=== PATIENT | male | born 1945 | race Caucasian/White ===

== ENCOUNTER 2017-12-08 11:35 | Emergency (ER) | payer MEDICARE ==
[2017-12-08 11:54] VITALS: TEMP 97.7; O2SAT 97
--- NOTE | 2017-12-08 12:35 | ED.PDOC ---
History of Present Illness - General Chief Complaint: Back Pain or Injury Stated Complaint: back pain, right shoulder pain Time Seen by Provider: 12/08/17 11:57 Source: patient Exam Limitations: no limitations - History of Present Illness Initial Comments: Gregor Fair 72 y/o male stated that he has history of radicular chronic low back pain in the past but had epidural injection in [place] which relieve his symptoms and the last 4 days had same problem with pain radiation down right leg no bowel or bladder dysfunction,no fever ,no weight loss.Has also right shoulder pain unable to raise right arm for several months.He has history of right kidney CA s/p Right nephrectomy and htn not taking medication and no regular md follow up. Timing/Duration: other - see hpi Quality/Severity: sharpness Back Pain Location: lumbar spine Back Pain Radiation: lower legs - right Method of Injury/Prior Injury: unknown Improving Factors: rest Worsening Factors: movement Associated Symptoms: lower back pain Allergies/Adverse Reactions: Allergies Penicillins Allergy (Verified 09/08/12 06:31) Enoxaparin [From Lovenox] Adverse Reaction (Verified 09/08/12 06:31) Home Medications: Ambulatory Orders Albuterol Inhaler [Ventolin Hfa Inhaler] 1 puff INH QID #1 unt 08/14/15 levoFLOXacin [Levaquin] 500 mg PO QDAC #7 tab 08/14/15 Gabapentin [Neurontin] 300 mg PO BID #30 cap 12/08/17 Tramadol HCl 50 mg PO TID #20 tab 12/08/17 predniSONE 20 mg PO DAILY #7 tab 12/08/17 Review of Systems - Review of Systems Constitutional: States: no symptoms reported EENTM: States: no symptoms reported Respiratory: States: no symptoms reported Cardiology: States: no symptoms reported Gastrointestinal/Abdominal: States: no symptoms reported Genitourinary: States: no symptoms reported Musculoskeletal: States: see HPI Skin: States: no symptoms reported Neurological: States: no symptoms reported Past Medical History (General) - Patient Medical History Hx Seizures: No Hx Stroke: No Hx Asthma: No Hx of COPD: No Hx Cardiac Disorders: No Hx Congestive Heart Failure: No Hx Diabetes: No Hx Cancer: Yes - Kidney 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 Source:: Wound Surgical History: other - right nephrectomy,right knee - Vaccination History Hx Influenza Vaccination: No - Social History Hx Tobacco Use: Yes Hx Physical Abuse: No Hx Emotional Abuse: No Family Medical History - Family History Mother Family History: Unknown Living Status: Unknown Hx Family Cancer: Yes - lung-brother;stomach-mom Physical Exam - Physical Exam General Appearance: Alert, Comfortable, No apparent distress Eyes, Ears, Nose, Throat Exam: normal ENT inspection Neck Exam: non-tender, full range of motion, normal alignment Cardiovascular/Respiratory: regular rate, rhythm, no M/R/G, normal peripheral pulses, no JVD, normal breath sounds Peripheral Pulses: radial,right: 2+, radial,left: 2+ Gastrointestinal/Abdominal: non tender, soft, no organomegaly Back Exam: normal inspection, no CVA tenderness, no vertebral tenderness, decreased range of motion - spasm, muscle spasm Extremity Exam: non-tender, no pedal edema, pain with movement - right shoulder on flexio /abduction Neurologic: no motor/sensory deficits, alert, oriented x 3, other - DTR 2+ bilaterally Skin Exam: normal color, warm/dry Progress - Progress Progress: 12/08/17 12:39 Vital Signs - 24 hr 12/08/17 11:42 Temperature 97.7 F Pulse Rate [ 66 left brachial] Respiratory 18 Rate Blood Pressure 167/104 [left brachial] O2 Sat by Pulse 97 Oximetry - Results/Orders Results/Orders: Laboratory Results - last 24 hr 12/08/17 12/08/17 12/08/17 12:51 12:51 13:27 WBC 10.9 H RBC 5.19 Hgb 15.5 Hct 45.4 MCV 87.6 MCH 29.8 MCHC 34.1 RDW 14.0 Plt Count 313 MPV 7.2 L Absolute Neuts (auto) 8.40 H Absolute Lymphs (auto) 1.50 Absolute Monos (auto) 0.60 Absolute Eos (auto) 0.30 Absolute Basos (auto) 0.10 Neutrophils % 77.4 Lymphocytes % 13.7 L Monocytes % 5.5 Eosinophils % 2.5 Basophils % 0.9 Sodium 137 Potassium 4.1 Chloride 101 Carbon Dioxide 27 Anion Gap 13.1 BUN 17 Creatinine 1.16 BUN/Creatinine Ratio 14.7 Random Glucose 123 H Serum Osmolality 276.7 Calcium 9.2 Urine Color Yellow Urine Appearance Clear Urine pH 5.5 Ur Specific [place] 1.020 Urine Protein 30 Urine Glucose (UA) Negative Urine Ketones Trace Urine Blood Negative Urine Nitrite Negative Urine Bilirubin Negative Urine Urobilinogen 0.2 Ur Leukocyte Esterase Negative Urine RBC 0 Urine WBC 0 Ur Epithelial Cells 1-3 Urine Bacteria 0 - EKG/XRAY/CT XRAY: lumbar spine degenerative disc disease Departure - Departure Clinical Impression: Rotator cuff insufficiency of right shoulder, Lumbar radiculopathy, right, Degeneration of lumbar intervertebral disc Time of Disposition: 14:04 Disposition: Discharge to Home or Self Care Condition: Fair Departure Forms: ED Discharge - Pt. Copy, Patient Portal Self Enrollment Instructions: DI for Back Pain With Sciatica Referrals: Efrain Alex III, MD [Primary Care Provider] - 1-2 Weeks Prescriptions: Gabapentin [Neurontin] 300 mg PO BID #30 cap predniSONE 20 mg PO DAILY #7 tab Tramadol HCl 50 mg PO TID #20 tab Home Medications: Ambulatory Orders Albuterol Inhaler [Ventolin Hfa Inhaler] 1 puff INH QID #1 unt 08/14/15 levoFLOXacin [Levaquin] 500 mg PO QDAC #7 tab 08/14/15 Gabapentin [Neurontin] 300 mg PO BID #30 cap 12/08/17 Tramadol HCl 50 mg PO TID #20 tab 12/08/17 predniSONE 20 mg PO DAILY #7 tab 12/08/17 Additional Instructions: Need to sign up with primary Md for follow up
[2017-12-08] MEDS ORDERED: KETOROLAC TROMETHAMINE INJ 30 MG/ML VIAL IM ONE (12:41)
[2017-12-08] MEDS ORDERED: ORPHENADRINE CITRATE 30 MG/ML AMP IM ONE (12:41)
[2017-12-08] MEDS ORDERED: HYDROcodone 10MG/APAP 325MG 1 EA TAB PO ONE (12:41)
--- NOTE | 2017-12-08 13:07 | RAD ---
Procedure: XR LUMBAR SPINE 2-3 VIEWS Exam Date: 12/08/2017 12:40 PM CDT Ordering Provider: Rosas Stokes Clinical Indication: pain Comparison: None Findings: No fracture, focal osseous destruction, or malalignment. Multilevel moderate disc space narrowing and endplate spurring is seen throughout the lumbar spine. Soft tissues are unremarkable. IMPRESSION: No acute osseous abnormality. Multilevel moderate degenerative disc disease in the lumbar spine. Electronically signed by: Alfredo Ramirez MD 12/08/2017 1:06 PM CDT
[2017-12-08 14:37] VITALS: BP 125/86
== END 2017-12-08 14:28 | disposition home or self-care (01) ==
LOC: ER 11:35
DX: M51.16 Intervertebral disc disorders with radiculopathy, lumbar region (principal); S46.001A Unspecified injury of muscle(s) and tendon(s) of the rotator cuff of right shoulder, initial encounter; Z85.528 Personal history of other malignant neoplasm of kidney; Z90.5 Acquired absence of kidney; Z87.891 Personal history of nicotine dependence; I10 Essential (primary) hypertension
CPT/HCPCS: 36415; 72100; 80048; 81001; 85025; J1885; J2360

== ENCOUNTER → 2019-07-22 | Outpatient (CLI) | payer MEDICARE | LOC: LAB.O 08:35 | PROVIDERS: ATTEND Family Medicine | DX: I10 Essential (primary) hypertension (principal); C64.9 Malignant neoplasm of unspecified kidney, except renal pelvis; R53.83 Other fatigue; D51.0 Vitamin B12 deficiency anemia due to intrinsic factor deficiency; Z13.220 Encounter for screening for lipoid disorders; Z12.5 Encounter for screening for malignant neoplasm of prostate ==

== ENCOUNTER 2019-10-22 | Emergency (ER) | payer MEDICARE, OTHER | END 2019-10-22 15:52 | disposition home or self-care (01) | DX: R10.30 Lower abdominal pain, unspecified (principal); R91.1 Solitary pulmonary nodule; R00.1 Bradycardia, unspecified; M47.817 Spondylosis without myelopathy or radiculopathy, lumbosacral region; K80.20 Calculus of gallbladder without cholecystitis without obstruction; N40.0 Benign prostatic hyperplasia without lower urinary tract symptoms; K57.30 Diverticulosis of large intestine without perforation or abscess without bleeding; Z90.5 Acquired absence of kidney; Z85.528 Personal history of other malignant neoplasm of kidney; Z87.891 Personal history of nicotine dependence ==

== ENCOUNTER → 2019-12-01 | Outpatient (CLI) | payer OTHER ==
--- NOTE | 2019-12-01 10:12 | RAD ---
EXAM DESCRIPTION: Left hip, 2 views CLINICAL HISTORY: Left hip pain FINDINGS/ IMPRESSION: Sclerotic density intertrochanteric left proximal femur. Mildly spiculated margins. No surrounding lucency. Imaging appearance most consistent with bone island Acetabular over coverage of the femoral head with superolateral acetabular osteophyte ridge predisposing to femoroacetabular impingement. Mild joint space narrowing of the weightbearing hip No advanced arthrosis or focal osteochondral lesion. No fracture the proximal femur or pelvis Electronically signed by: Meño Alegre MD 12/01/2019 10:11 AM CDT
== END ==
LOC: YCFC.O 09:08
PROVIDERS: ATTEND Family Medicine
DX: M25.852 Other specified joint disorders, left hip (principal); M25.752 Osteophyte, left hip; M89.8X5 Other specified disorders of bone, thigh; E78.5 Hyperlipidemia, unspecified

== ENCOUNTER → 2019-12-17 | Outpatient (CLI) | payer OTHER ==
--- NOTE | 2019-12-17 09:28 | MRI ---
Study: MRI of the Right Shoulder. Indication: SHOULDER PAIN Technique: Multiplanar, multi sequence MRI of the right shoulder was obtained without intravenous contrast. Comparison: None. Findings: Severe hypertrophic AC joint osteoarthritis. Type I acromion mild lateral downsloping. Supraspinatus and infraspinatus tendinosis and attenuation with subtle low-grade articular tearing throughout the infraspinatus tendon insertion. Both tendons are slightly attenuated and elongated with medial myotendinous retraction by 2 mm. No full-thickness tear. Subscapularis tendinosis with high-grade interstitial tearing superior two thirds tendon insertion. Teres minor tendon intact. Mild atrophy and grade 2 fatty infiltration rotator cuff musculature. Long head biceps tendinosis with partial medial subluxation onto the lesser tuberosity. Circumferential labral maceration/tearing. Severe glenohumeral joint osteoarthritis with complete joint space loss. Patchy areas of cortical remodeling and subchondral cystic change. B2 type glenoid present. Moderate size joint effusion. Moderate inferior humeral osteophyte formation. Impression: Supraspinatus and infraspinatus tendinosis, attenuation, and tendon elongation with subtle low-grade interstitial tearing throughout the infraspinatus tendon insertion Subscapular tendinosis with high-grade interstitial tearing superior two thirds tendon insertion. Mild atrophy and grade 2 fatty infiltration rotator cuff musculature. Long head biceps tendinosis with partial medial subluxation. Circumferential labral maceration/tearing. Severe glenohumeral joint osteoarthritis with a moderate size joint effusion. Severe hypertrophic AC joint osteoarthritis. Electronically signed by: Thiago Bejarano MD 12/17/2019 9:27 AM CDT
== END ==
LOC: MRI 08:20
PROVIDERS: ATTEND Family Medicine
DX: S43.431A Superior glenoid labrum lesion of right shoulder, initial encounter (principal); S46.911A Strain of unspecified muscle, fascia and tendon at shoulder and upper arm level, right arm, initial encounter; M75.91 Shoulder lesion, unspecified, right shoulder; M19.011 Primary osteoarthritis, right shoulder; M25.411 Effusion, right shoulder; M62.511 Muscle wasting and atrophy, not elsewhere classified, right shoulder; M75.21 Bicipital tendinitis, right shoulder

== ENCOUNTER → 2020-01-15 | Outpatient (CLI) | payer OTHER ==
--- NOTE | 2020-01-15 09:30 | RAD ---
EXAM DESCRIPTION: Pelvis CLINICAL HISTORY: 74 years Male, PAIN INLEFT HIP COMPARISON: Left hip radiograph December 01, 2019 FINDINGS: 2 views of the pelvis and left hip were obtained. No acute fracture or malalignment. Again seen is an irregular sclerotic lesion in the intertrochanteric region of the left femur, stable from the prior exam. Bilateral hip joint space narrowing, worse on the right side. Osteophytes arising from the acetabular margins bilaterally. The symphysis and sacroiliac joints are unremarkable. No soft tissue abnormality. IMPRESSION: Degenerative changes in both hips, slightly worse in the right side, with a persistent sclerotic lesion in the intertrochanteric region of the left femur, stable. Differential considerations as described previously but the lesion is ultimately nonspecific. If the patient has persistent left hip pain, MRI could be performed for further evaluation. Electronically signed by: Tio Valente MD 01/15/2020 9:28 AM CDT
--- NOTE | 2020-01-15 09:32 | RAD ---
EXAM DESCRIPTION: Knee,Left Complete CLINICAL HISTORY: 74 years Male, PAIN IN LEFT KNEE COMPARISON: None. FINDINGS: 4 views of the left knee show no acute fracture or malalignment. Moderate medial and lateral joint space narrowing. Small osteophytes in the patellofemoral compartment. Moderate-sized joint effusion. IMPRESSION: Moderate tricompartmental degenerative changes with a left knee joint effusion. Electronically signed by: Tio Valente MD 01/15/2020 9:31 AM CDT
== END ==
LOC: RAD 08:26
PROVIDERS: ATTEND Orthopaedic Surgery
DX: M17.12 Unilateral primary osteoarthritis, left knee (principal); M25.462 Effusion, left knee; M16.0 Bilateral primary osteoarthritis of hip; M89.9 Disorder of bone, unspecified

== ENCOUNTER → 2020-01-27 | Outpatient (CLI) | payer OTHER ==
--- NOTE | 2020-01-27 09:44 | CT ---
EXAM DESCRIPTION: CT abdomen and pelvis without and with contrast CLINICAL HISTORY: Generalized abdominal pain COMPARISON: None Available. TECHNIQUE: Spiral CT with multiplanar reformatted images. Pre and post intravenous iodinated nonionic contrast This exam was performed according to our departmental dose-optimization program, which includes automated exposure control, adjustment of the mA and/or kV according to patient size and/or use of iterative reconstruction technique. FINDINGS: Multiple 5-9 mm gallstones layering dependently in the gallbladder. No evidence of cholecystitis or choledocholithiasis. No biliary ductal obstruction. Normal appearance of the liver, spleen and pancreas. Previous right nephrectomy. No mass or adenopathy in the right renal fossa. 1.6 cm simple cyst lower medial left kidney. Mild nodular hyperplasia of the left adrenal gland. Atherosclerotic aorta and iliac arteries without aneurysm Diverticulosis of the lower descending and sigmoid colon. No diverticulitis. No mass lesion or focal inflammatory process in the stomach, small or large intestine. Normal terminal ileum and appendix No mass lesion or adenopathy in the omentum, mesentery or retroperitoneum Prostate hypertrophy with a couple of small central calcifications. No mass or adenopathy in the pelvis Nonaggressive lesion of the proximal left femur, likely low-grade chondroid lesion. Multilevel degenerative change in the spine with scoliosis. Osteoarthritis of the right hip with degenerative cyst in the abdomen is a tiny amount. No diagnostic acute bony abnormality Calcified granuloma in the right middle lobe. Visualized lung bases are otherwise clear. Normal heart size IMPRESSION: 1.6 cm simple cyst of the left kidney. Previous right nephrectomy Small gallstones layering dependently in the gallbladder without cholecystitis Colonic diverticulosis without diverticulitis Electronically signed by: Meño Alegre MD 01/27/2020 9:43 AM CDT
--- NOTE | 2020-01-28 08:24 | CT ---
Procedure: CT LUNG SCREENING Exam Date: January 27, 2020. Ordering Provider: Carlito Quan Clinical Indication: PERSONAL HISTORY OF NICOTINE DEPENDENCE smoking cessation x20 years. 40 pack years. This patient meets eligibility criteria for low-dose CT lung cancer screening. Comparison: Chest x-ray August 2015. Technique: Using a multislice scanner, sequential helical axial imaging was obtained in the thorax, 2.5 mm thickness, 2.5 mm separation, from the level of the thoracic inlet through the lung bases without IV contrast. A low dose protocol was utilized for BMI greater than 30: BMI: 30.5. CTDI: 2.91 mGy. 120. kVp. 75 mA. DLP 116 mGy-cm. 2D sagittal and coronal reconstructed images, 6.0 mm thickness, were obtained. This exam was performed according to our departmental dose optimization program which includes use of automated exposure control, adjustment of the mA and/or kV according to patient size and/or use of iterative reconstruction technique. Nodule measurements under 10 mm are given as mean value of 3 axes diameters. FINDINGS: Lungs and large airways: Bilateral minimal uniform parenchymal blebs in the upper lung du. Pleural parenchymal scarring associated with a calcified nodule in the base of the right middle lobe. Bibasilar pleural-parenchymal scarring and/or posterior dependent atelectasis. Bilateral perihilar peribronchial wall thickening minimal. No abnormal nodules or mass. No focal infiltrates. Pleura and space: Unremarkable. Mediastinum and boom: evaluation limited by low dose technique and lack of IV contrast. Negative. Heart and great vessels: Atherosclerotic calcifications in the coronary arteries and aortic arch and descending thoracic aorta. Chest wall, lower neck, axillae: Evaluation also limited by same factors as described above. Unremarkable. Upper abdomen: Evaluation limited by low-dose technique. No free air or free fluid in the included peritoneal space. At least 5 [place] dependent gallstones in the included gallbladder. Normal density and size of the adrenal glands and spleen. Osseous structures: Evaluation limited by low dose MIP technique. Significant bilateral foraminal narrowing at T9-10 and T10-11. Endplate spondylosis at these levels and more superior. Sternoclavicular and glenohumeral arthrosis. IMPRESSION: 1. Minimal emphysematous changes upper lung du. Pleural parenchymal scarring and posterior dependent atelectasis. No abnormal nodules and no masses. No acute infiltrate.. [facility] Best Practice Recommendations: please see below for Lung RADS category and FOLLOW-UP.* *Lung RADS category Category 1 - No nodule or definitely benign nodules (probability of malignancy less than 1%). Follow-up: Continue annual screening with Low Dose Chest CT in 12 months. Electronically signed by: Tyson Smart MD 01/28/2020 8:22 AM CDT
== END ==
LOC: YCFC.O 07:00
PROVIDERS: ATTEND Family Medicine
DX: Z87.891 Personal history of nicotine dependence (principal); J98.11 Atelectasis; J98.4 Other disorders of lung; J43.9 Emphysema, unspecified; I10 Essential (primary) hypertension; R10.9 Unspecified abdominal pain; N28.1 Cyst of kidney, acquired; Z90.5 Acquired absence of kidney; K80.20 Calculus of gallbladder without cholecystitis without obstruction; K57.30 Diverticulosis of large intestine without perforation or abscess without bleeding
CPT/HCPCS: 36415; 74178; 80053; 81001; 82150; 83690; 85025; 93005; G0297

== ENCOUNTER → 2020-02-16 | Outpatient (CLI) | payer OTHER ==
--- NOTE | 2020-02-16 14:15 | US ---
EXAM DESCRIPTION: Venous,Lower Extremity LT (accession [id number]), Venous,Lower Extremity RT (accession [id number]): Ultrasound. CLINICAL HISTORY: VENOUS STASIS EDEMA OF BILATERAL LOWER LIMBS COMPARISON: None Available. TECHNIQUE: Two -dimensional and doppler sonographic evaluation of the deep venous system of the bilateral lower extremities. FINDINGS: Doppler evaluation shows normal color flow and normal phasicity and augmentation of the bilateral common femoral veins, junctions with the bilateral proximal saphenous veins, femoral veins, popliteal veins, greater saphenous veins, peroneal and posterior tibial veins. These veins showed normal occlusion with transducer pressure. Two-dimensional survey showed no echogenic clot within these veins. IMPRESSION: Duplex ultrasound evaluation of the bilateral lower extremity deep venous systems showing no evidence of thrombosis. Electronically signed by: Tyson Smart MD 02/16/2020 2:14 PM CDT
--- NOTE | 2020-02-16 14:16 | US ---
EXAM DESCRIPTION: Venous,Lower Extremity LT (accession [id number]), Venous,Lower Extremity RT (accession [id number]): Ultrasound. CLINICAL HISTORY: VENOUS STASIS EDEMA OF BILATERAL LOWER LIMBS COMPARISON: None Available. TECHNIQUE: Two -dimensional and doppler sonographic evaluation of the deep venous system of the bilateral lower extremities. FINDINGS: Doppler evaluation shows normal color flow and normal phasicity and augmentation of the bilateral common femoral veins, junctions with the bilateral proximal saphenous veins, femoral veins, popliteal veins, greater saphenous veins, peroneal and posterior tibial veins. These veins showed normal occlusion with transducer pressure. Two-dimensional survey showed no echogenic clot within these veins. IMPRESSION: Duplex ultrasound evaluation of the bilateral lower extremity deep venous systems showing no evidence of thrombosis. Electronically signed by: Tyson Smart MD 02/16/2020 2:14 PM CDT
--- NOTE | 2020-02-16 14:25 | US ---
EXAM DESCRIPTION: Gall Bladder: ULTRASOUND. CLINICAL HISTORY: UNSPECIFIED ABDOMINAL PAIN COMPARISON: Vascular ultrasound of the lower extremities on this visit. CT scan abdomen and pelvis January 26. TECHNIQUE: Transabdominal scanning: Mckeon-scale and Doppler modes.. Technically difficult study due to patient body habitus. FINDINGS: Gallbladder: Large with septation or cyst. Cavitary dependent stones measuring 4.2, 2.9, and 4.8 mm. No fluid around the gallbladder. No wall thickening. 2.3 mm. Non-tender with transducer pressure. Common bile duct: caliber 4.2 mm within normal limits. Liver: Increased echogenicity; limited visualization of the posterior liver and soft tissues posterior to the liver. Contour liver capsule smooth where seen. No fluid around the liver. Intrahepatic biliary ducts normal caliber. Doppler hepatopedal flow portal vein.. 11 mm caliber at ricardo hepatis. Long axis right lobe 17.5 cm. Pancreas: normal size Normal echogenicity. Duct not seen. Aorta: 1.8 cm proximal caliber normal limits. Right kidney: Surgically absent. No fluid in the renal fossa.. IMPRESSION: 1. Gallbladder slightly enlarged with septation and multiple layering stones. No wall thickening or fluid. Nontender with transducer pressure. Normal caliber common bile duct. 2. Steatosis of the liver with difficult visualization of the posterior liver and posterior soft tissues. Borderline enlargement. Physiologic vascularity and caliber of the ducts. Normal ultrasound of the pancreas. 3. Normal caliber of the proximal abdominal aorta. Right kidney surgically absent with no fluid in the right renal fossa. Electronically signed by: Tyson Smart MD 02/16/2020 2:23 PM CDT
--- NOTE | 2020-02-16 14:26 | US ---
EXAM DESCRIPTION: Extremity,Lower Walker Arteries: Ultrasound. CLINICAL HISTORY: PVD COMPARISON: None. TECHNIQUE: Doppler evaluation of the bilateral lower extremity arterial flow waveforms and velocities. FINDINGS: Arterial waveforms in the right lower extremity are all multiphasic.. Arterial waveforms in the left lower extremity are all multiphasic.. Comments: Unremarkable. IMPRESSION: Doppler ultrasound of the bilateral lower extremity arterial system shows no evidence of significant atherosclerotic occlusive disease.. Electronically signed by: Tyson Smart MD 02/16/2020 2:25 PM CDT
== END ==
LOC: US 11:09
PROVIDERS: ATTEND Family Medicine
DX: K80.20 Calculus of gallbladder without cholecystitis without obstruction (principal); K76.0 Fatty (change of) liver, not elsewhere classified; K82.9 Disease of gallbladder, unspecified; I87.2 Venous insufficiency (chronic) (peripheral); I73.9 Peripheral vascular disease, unspecified; Z90.5 Acquired absence of kidney

== ENCOUNTER → 2020-04-06 | Outpatient (CLI) | payer OTHER | END | disposition home or self-care (01) | LOC: NM 09:00 | PROVIDERS: ATTEND Family Medicine | DX: R94.31 Abnormal electrocardiogram [ECG] [EKG] (principal) ==

== ENCOUNTER 2020-04-18 00:14 | Emergency (ER) | payer OTHER ==
[2020-04-18] MEDS ORDERED: traMADol HCL 50 MG TAB PO ONE (00:41)
[2020-04-18] MEDS ORDERED: diazePAM INJ 10 MG/2 ML SYG IM ONE (00:42)
[2020-04-18 00:49] VITALS: TEMP 97.9
--- NOTE | 2020-04-18 00:49 | ED.PDOC ---
History of Present Illness - General Chief Complaint: Neck Injury/Pain Stated Complaint: neck pain Time Seen by Provider: 04/18/20 00:41 Source: patient, RN notes reviewed, Vital Signs reviewed, family - Exam Limitations: no limitations - History of Present Illness Initial Comments: Patient is a 74-year-old white male who presents with complaints of worsening neck pain over the last few days. Patient was seen about a month ago for a lump on his left shoulder which his PCP thought was a lipoma. Patient noticed worsening neck pain over the last 2 to 3 days. It became significantly worse this evening. The pain is tight and squeezing in nature. It radiates from both shoulders up into his neck and head. Pain is worse with movement of his neck and head. Nothing is improving the pain. Patient attributes this to the lump on his shoulder. Patient denies any trauma. Patient denies any fever or chills. He denies any photophobia. Severity: severe Improving Factors: nothing Worsening Factors: movement Associated Symptoms: denies symptoms Allergies/Adverse Reactions: Allergies Penicillins Allergy (Verified 09/08/12 06:31) Enoxaparin [From Lovenox] Adverse Reaction (Verified 09/08/12 06:31) Home Medications: Ambulatory Orders Albuterol Inhaler [Ventolin Hfa Inhaler] 1 puff INH QID #1 unt 08/14/15 levoFLOXacin [Levaquin] 500 mg PO QDAC #7 tab 08/14/15 Gabapentin [Neurontin] 300 mg PO BID #30 cap 12/08/17 Tramadol HCl 50 mg PO TID #20 tab 12/08/17 predniSONE 20 mg PO DAILY #7 tab 12/08/17 Diazepam [Valium] 5 mg PO BID #10 tab 04/18/20 Tramadol HCl 50 mg PO Q8H #12 tab 04/18/20 Review of Systems - Review of Systems Constitutional: States: no symptoms reported, see HPI. Denies: chills, fever, m alaise, weakness EENTM: States: no symptoms reported. Denies: eye pain, blurred vision, double vision Respiratory: States: no symptoms reported. Denies: cough, orthopnea, short of breath, stridor, wheezing Cardiology: States: no symptoms reported. Denies: chest pain, palpitations, syncope Gastrointestinal/Abdominal: States: no symptoms reported. Denies: abdominal pain, diarrhea, nausea, vomiting Genitourinary: States: no symptoms reported Musculoskeletal: States: see HPI, neck pain. Denies: back pain Skin: States: no symptoms reported. Denies: change in color, rash Neurological: States: no symptoms reported. Denies: headache, numbness, paresthesia, tingling, tremors, weakness Endocrine: States: no symptoms reported Hematologic/Lymphatic: States: no symptoms reported All other Systems: No Change from Baseline Past Medical History (General) - Patient Medical History Hx Seizures: No Hx Stroke: No Hx Dementia: No Hx Asthma: No Hx of COPD: No Hx Cardiac Disorders: No Hx Congestive Heart Failure: No Hx Pacemaker: No Hx Hypertension: Yes Hx Thyroid Disease: No Hx Diabetes: No Hx Gastroesophageal Reflux: No Hx Renal Disease: No Hx Cancer: Yes - Kidney Hx of HIV: No Hx Hepatitis C: No Hx MRSA: No MRSA Source:: Wound Surgical History: other - Vaccination History Hx Tetanus, Diphtheria Vaccination: No Hx Influenza Vaccination: Yes Hx Pneumococcal Vaccination: No Immunizations Up to Date: No - Social History Hx Tobacco Use: No Hx Chewing Tobacco Use: No Hx Alcohol Use: No Hx Substance Use: No Hx Substance Use Treatment: No Hx Depression: No Feels Threatened In Home Enviroment: No Feels Threatened In a Relationship: No Hx Physical Abuse: No Hx Emotional Abuse: No Hx Suspected Abuse: No - Female History Patient is a Female of Child Bearing Age (10 -59 yrs old): No Family Medical History - Family History Mother Family History: Unknown Living Status: Unknown Hx Family Cancer: Yes - lung-brother;stomach-mom Physical Exam - Physical Exam General Appearance: Alert, Anxious, Obvious distress, Unkempt, Well Developed, Well Hydrated, Well Nourished Eye Exam: bilateral normal Ears, Nose, Throat: hearing grossly normal, normal ENT inspection, normal pharynx Neck: supple, tender lateral, other - Patient with a lipoma over the middle of his left trapezius. Patient does not have any midline tenderness to palpation of his neck. He does not have any step-offs or crepitus. He has muscle spasms bilateral paracervical muscles. 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 04/18/20 00:51 Patient is improved after muscle relaxers and pain meds. Plan on discharge home with follow-up with PCP. I will give him prescription for a few muscle relaxers and pain pills to hold him over until Saturday. I discussed this plan of care with the patient and his and they voiced understanding and agreement with the plan of care. Miguel Haley M.D. #[id number] Departure - Departure Clinical Impression: Neck pain, Muscle spasms of neck Time of Disposition: 00:53 Disposition: Discharge to Home or Self Care Condition: Good Departure Forms: ED Discharge - Pt. Copy, Patient Portal Self Enrollment Instructions: DI for Neck Pain, Cervical Muscle Strain (DC) Diet: resume usual diet Activity: increase activity as tolerated Referrals: Carlito Quan MD [Primary Care Provider] - 1-5 Days Prescriptions: Tramadol HCl 50 mg PO Q8H #12 tab Diazepam [Valium] 5 mg PO BID #10 tab Home Medications: Ambulatory Orders Albuterol Inhaler [Ventolin Hfa Inhaler] 1 puff INH QID #1 unt 08/14/15 levoFLOXacin [Levaquin] 500 mg PO QDAC #7 tab 08/14/15 Gabapentin [Neurontin] 300 mg PO BID #30 cap 12/08/17 Tramadol HCl 50 mg PO TID #20 tab 12/08/17 predniSONE 20 mg PO DAILY #7 tab 12/08/17 Diazepam [Valium] 5 mg PO BID #10 tab 04/18/20 Tramadol HCl 50 mg PO Q8H #12 tab 04/18/20
[2020-04-18 01:18] VITALS: BP 138/96; O2SAT 95
== END 2020-04-18 01:09 | disposition home or self-care (01) ==
LOC: ER 00:14
DX: M54.2 Cervicalgia (principal); M62.838 Other muscle spasm; I10 Essential (primary) hypertension; Z85.528 Personal history of other malignant neoplasm of kidney; Z79.899 Other long term (current) drug therapy; Z88.0 Allergy status to penicillin; Z88.8 Allergy status to other drugs, medicaments and biological substances

== ENCOUNTER → 2020-04-25 | Outpatient (CLI) | payer OTHER ==
--- NOTE | 2020-04-25 15:43 | RAD ---
EXAM DESCRIPTION: Cervical Spine, 2-3 Views CLINICAL HISTORY: NECK PAIN COMPARISON: None Available. TECHNIQUE: AP/lateral/ open-mouth odontoid FINDINGS: Anatomic alignment of cervical vertebrae is seen on lateral view with visualization of C1-C5. Degenerative narrowing at the atlantodens interval. Degenerative disc space narrowing most prominent at C5-6 with anterior and posterior spurring. Swimmer's views could be obtained to evaluate lower cervical and upper thoracic vertebrae. No fracture or subluxation. No prevertebral soft tissue swelling. Normal craniocervical alignment. There is preservation of the spinal laminar line. No spinous process avulsion. AP view shows normal spinous process alignment with normal alignment of the lateral masses. Prominent facet degenerative spurring at the mid and lower cervical levels. Lung apices are clear. IMPRESSION: Degenerative changes at C1-2 and C5-6. Electronically signed by: Aroldo Abbasi MD 04/25/2020 3:41 PM CDT
== END ==
LOC: YCFC.O 09:27
PROVIDERS: ATTEND Family Medicine
DX: M47.892 Other spondylosis, cervical region (principal)

== ENCOUNTER → 2020-05-04 | Outpatient (CLI) | payer OTHER ==
--- NOTE | 2020-05-04 14:17 | MRI ---
EXAM DESCRIPTION: Cervical Spine: MRI. CLINICAL HISTORY: 74 years Male CERVICAL DISC DISORDER COMPARISON: 3 views cervical Spine series April 25. TECHNIQUE: Multiplanar, high-field MRI, multiple sequences, non-contrast Cervical spine.. Image degradation on some sequences due to patient motion and swallowing. FINDINGS: C3-C4: Disc desiccation posterior midline bulge touching the cord. Bilateral posterior ligament thickening. Left uncinate spur. Hypertrophic changes in the left facet joint; right facet joint normal. Left neural foraminal stenosis. Minimal narrowing of the right neural foramen. Borderline mild central canal stenosis. C4-C5: Disc desiccation with disc space maintained. Left side disc spur complex and uncinate spur causing left neural foraminal stenosis. Also hypertrophy of the left facet joint; right facet joint normal.. Bulging disc and endplates on the right causing right neural foraminal stenosis. Posterior broad-based disc bulge abutting the cord. Minimal thickening of the posterior ligaments. Borderline mild central canal stenosis. Borderline left neural foraminal stenosis. C5-C6: Marked endplate reactive changes with sclerosis and disc space loss. Posterior disc remnant and spurs bulging into the canal abutting the cord. Bilateral uncinate spurs. Bilateral mild hypertrophic facet arthrosis. Bilateral mild neural foraminal stenosis and borderline central canal stenosis. C6-C7: Disc desiccation and minimal disc space loss with diffuse moderate endplate reactive changes. Anterior disc bulge with spurs. Bilateral uncinate spurs encroaching on the foramen. Borderline central canal stenosis. Bilateral mild hypertrophic facet arthrosis. Bilateral moderate to severe neural foraminal narrowing. C7-T1: Trace anterolisthesis. Disc desiccation with disc space maintained. Minimal posterior bulge in the midline. Bilateral hypertrophic facet arthrosis. Bilateral moderate to severe neural foraminal narrowing. Mild to moderate canal narrowing. Normal signal in the C2-3 disc and T1-T2 disc with no bulging. Disc spaces preserved. Canal and neural foramina are patent. Facet joints are negative. Spinal alignment minimally lordotic. No cord compression or cord edema. Atlantoaxial joint showing arthrosis and minimal hypertrophy with the posterior capsule in close approximation to the ventral cord.. Base of the cerebellar tonsils is just above the foramen magnum. Paravertebral soft tissues unremarkable.. Vertebral bodies are not compressed at any level. Normal marrow signal in the remaining vertebral bodies and the posterior elements. IMPRESSION: 1. Multiple levels of disc desiccation, endplate spondylosis, facet arthrosis and hypertrophy, and thickening of the posterior flavum ligaments. Also multiple levels of the uncinate spurs. Most severe/advanced at C5-C6 and C6/C7. 2. Bilateral neural foraminal stenosis at C4-C5 with possible radiculopathy bilateral C5. Also borderline mild central canal stenosis. 3. Bilateral mild neural foraminal stenosis at C5-C6 and borderline central canal stenosis. Correlate for bilateral C6 radiculopathy. 4. Borderline mild central canal stenosis C6-C7. 5. Please refer to FINDINGS for discussion of results at other disc space levels. Electronically signed by: Tyson Smart MD 05/04/2020 2:15 PM CDT
== END ==
LOC: MRI 07:53
PROVIDERS: ATTEND Family Medicine
DX: M50.31 Other cervical disc degeneration, high cervical region (principal); M50.321 Other cervical disc degeneration at C4-C5 level; M50.323 Other cervical disc degeneration at C6-C7 level; M50.33 Other cervical disc degeneration, cervicothoracic region; M47.892 Other spondylosis, cervical region; M48.02 Spinal stenosis, cervical region; M24.28 Disorder of ligament, vertebrae; M25.78 Osteophyte, vertebrae; M43.13 Spondylolisthesis, cervicothoracic region; M47.893 Other spondylosis, cervicothoracic region